=== PATIENT | male | born 1950 | race Caucasian/White ===

== ENCOUNTER 2016-08-08 15:29 | Emergency (ER) | payer MEDICARE, OTHER ==
[2016-08-08] MEDS ORDERED: HYDROmorphone 2 MG/ML SDV IVPUSH ONE (15:35)
[2016-08-08] MEDS ORDERED: Sodium Chloride 0.9% 1,000 ML IV ONE (15:36)
[2016-08-08] MEDS ORDERED: Ondansetron 4 MG/2 ML SDV IVPUSH ONE (15:36)
[2016-08-08] MEDS ORDERED: HYDROmorphone 2 MG/ML SDV ONE (15:36)
[2016-08-08] MEDS ORDERED: Ondansetron 4 MG/2 ML SDV ONE (15:36)
[2016-08-08 17:13] VITALS: BP 174/96
[2016-08-08] MEDS ORDERED: Sodium Chloride 0.9% 10 ML Syringe FLUSH PRN (17:14)
--- NOTE | 2016-08-09 12:32 | ER ---
DATE SEEN: 08/08/2016 TIME SEEN: The patient was seen at 1510 hours. HISTORY OF PRESENT ILLNESS: This 65-year-old comes in with chief complaint of abdominal discomfort, not sleeping for the last 3 days, and midepigastric abdominal discomfort. His stated that he fell on June 20, 2016, had hip and elbow discomfort, no fracture noted. Since then, he has been worse. He also has been having difficulty sleeping for several months. 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 No history of weight loss, blood in the stool, black tarry stool, diarrhea, constipation, vomiting, back pain, chest pain, shortness of breath, cough, paresis, weakness, or numbness in lower extremities. He has taken Tums on and off, and it has resulted in small stools. FAMILY HISTORY: Mother recently of old age. Father had congestive heart failure at age 80, with liver congestion, stents, and kidney disease. Brother is alive and healthy. One sister of uterine cancer. Another sister of uterine cancer and a bowel obstruction. REVIEW OF SYSTEMS: Negative except as noted above. The patient denies headache, paresis, or neck stiffness. No shortness of breath, cough, chest pain, irregular heartbeat, near syncope. Denies falls. Denies leg pain. Denies frequency, urgency, dysuria, or renal stones. MEDICATIONS: 1. Pain medicine given to the patient, IV 2 mg of Dilaudid and flushed with normal saline. 2. Zofran 4 mg IV before he went off to CAT scan. CAT scan came back as large pancreatic 10 cm mass in the abdomen. PHYSICAL EXAMINATION: VITAL SIGNS: Blood pressure 175/91, heart rate 62, respirations 18, oxygen saturation 98%, temperature 36.5 degrees. GENERAL: The patient has marked pain, mainly in his left flank. He does not want to move. He has all these signs of severe flank pain related to a kidney stone. He has an anterior abdominal mass that appears significant about a softball size, it is indurated, above the umbilicus. Bowel sounds present. No increased bowel sounds. HEENT: PERRLA intact. TMs negative. Pharynx without abnormality. Mouth, dry mucosa. NECK: No cervical adenopathy or thyromegaly. No sentinel nodes. CHEST: No chest wall discomfort. No rales in the lungs. No rhonchi or wheezes. HEART: S1, S2. No irregular rate and rhythm. ABDOMEN: Firm, mildly tender, large mass 10 to 14 cm, in the mid supraumbilical region, . Bowel sounds are present. No tympany. No sign of bowel obstruction. No distention. No CVA percussion tenderness. GENITALIA: Negative. EXTREMITIES: Lower extremities without edema. Deep tendon reflexes normoactive, hypoactive in upper and lower extremities. Cranial nerves II through XII intact. Oriented x3. Gait not tested because he is somnolent and lightheaded from the 2 mg of Dilaudid IV dose. ASSESSMENT: 1. Pancreatic cancer with extensive lymphadenopathy in the abdomen, findings on CAT scan today. 2. Pancreatic tumor Inappropriate antidiuretic hormone secretion with hyponatremia, hypochloremia with sodium 120, chloride 87. 3. Elevated glucose 130, reactive glucose elevation, lactic acid 1.6, calcium 8.4, AST elevated at 51, ALT 30, troponin less than 0.01. When evaluating the liver, I did place the Hounsfield on the kidneys to look for kidney stones. I pushed the Hounsfield units over to liver, there are areas of increased Hounsfield units, about 84, and one focal area of the liver in the inferior midportion, as opposed to other areas of 8, this suggests perhaps there is metastatic disease in the liver also. DIAGNOSES: 1. Pancreatic cancer. 2. Extensive abdominal lymphadenopathy. 3. Difficulty sleeping secondary to his pancreatic cancer and abdominal pain. 4. Inappropriate antidiuretic hormone secretion with hypochloremia and hyponatremia. 5. Reactive elevated glucose. 6. Urinalysis is negative. He has ketonuria secondary to hypoglycemia. EMERGENCY ROOM COURSE: The patient was flushed with a liter of normal saline and followed with a liter of 150 mL/hour of lactated Ringer's. The patient's status was discussed with Dr. Mcgovern, at [place]. At 1650 hours, the patient was transferred to [place] by car for further evaluation and treatment. /[id number] SUN/BEN OGD
--- NOTE | 2016-08-10 12:24 | CR ---
INDICATION: Right flank pain/diaphoresis. CHEST: AP and lateral views of the chest were obtained 08/08/2016. No comparisons were available. The heart appears to be near the upper limits of normal in size. The aorta is tortuous with minimal calcification in the arch of the aorta. Slight flattening of diaphragm leaves with prominent AP diameter and hyperaeration suggests COPD. An active infiltrate or effusion was not identified. Moderately severe degenerative changes are noted at the right AC joint. Degenerative changes are suggested at the shoulders additionally. IMPRESSION: 1. No definite acute process. 2. Probable COPD. 3. ASHD. 4. DISH with flowing hyperostotic changes in the mid to lower thoracic spine. MTDD
== END 2016-08-08 18:20 ==
LOC: FB.ED 15:29
DX: C25.0 Malignant neoplasm of head of pancreas (principal); R59.0 Localized enlarged lymph nodes; G47.01 Insomnia due to medical condition; E22.2 Syndrome of inappropriate secretion of antidiuretic hormone; E87.8 Other disorders of electrolyte and fluid balance, not elsewhere classified; I25.10 Atherosclerotic heart disease of native coronary artery without angina pectoris; Z82.49 Family history of ischemic heart disease and other diseases of the circulatory system; Z80.8 Family history of malignant neoplasm of other organs or systems
CPT/HCPCS: 36415; 71020; 74176; 80053; 81001; 82150; 83605; 84484; 85025; 96361; 96374; 96375; 99203; 99285; J1170; J2405; J7040; J7050

== ENCOUNTER 2016-08-17 05:16 | Emergency (ER) | payer MEDICARE, OTHER ==
[2016-08-17] MEDS ORDERED: Ondansetron 4 MG/2 ML SDV IVPUSH ONE (05:40)
[2016-08-17] MEDS ORDERED: HYDROmorphone 2 MG/ML SDV IVPUSH ONE ×2 (05:40→08:40)
[2016-08-17] MEDS ORDERED: Sodium Chloride 0.9% 1,000 ML IV SCH (05:45)
[2016-08-17] MEDS ORDERED: Pantoprazole 40 MG Vial IVPUSH ONE (08:10)
[2016-08-17 12:37] VITALS: BP 134/71
--- NOTE | 2016-08-20 13:38 | ER ---
DATE SEEN: 08/17/2016 TIME SEEN: The patient was seen at 0530 hours. CHIEF COMPLAINT: Abdominal pain. HISTORY OF PRESENT ILLNESS: The patient has been seen by oncologist for the masses discovered by myself last week after CAT scanning extensively and was thought to have pancreatic cancer, but it turns out it was primarily lymph node abnormality. Biopsy was performed in [place] and sees the oncologist tomorrow. He has increasing abdominal pain with burning in his stomach. He is taking hydrocodone with Tylenol, that does not decrease his pain. He has increased satiety. Mild diarrhea. No constipation or blood in the stool. No shortness of breath, chest pain, back pain, arm pain, jaw pain, neck pain, lightheadedness, or dizziness. His is able to drink fluids without vomiting. No reflux and no history of hepatitis or jaundice with the current lesion. FAMILY HISTORY: Mother of old age. Father has congestive heart failure, living at age 80 with stents and kidney disease. Brother is alive and healthy. One sister of uterine cancer. Another sister of uterine cancer and bowel obstruction. REVIEW OF SYSTEMS: Negative except for noted above. Previously documented extensive abdominal lymphadenopathy, abdominal mass, hyponatremia thought to be secondary to antidiuretic hormone from the cancer. The patient was then transferred to [place] to be seen and making arrangements for chemotherapy followup. PHYSICAL EXAMINATION: VITAL SIGNS: Blood pressure 171/96, heart rate 81 and regular, respirations 20, oxygen saturation 96% on room air, and temperature is 36.6 degrees centigrade. GENERAL: The patient looks worn, tired and uncomfortable. He is quite a stoic fellow, in spite of the fact he has moderate pain, discomfort of 6 to 7 in intensity. HEENT: PERRLA intact. Slightly slow reactive pupils. TMs negative. Pharynx, mild dry mucosa. LUNGS: Clear to auscultation without rales, rhonchi, or wheezes. HEART: S1, S2. No murmur. No tachycardia. ABDOMEN: Firm, moderate discomfort. Mass in mid periumbilical area is noted. No guarding. No rebound. No heel tap rebound. RECTAL: Not performed. GENITALIA: Not examined. LOWER EXTREMITIES: No edema. No laboratory tests were performed today, as I know him well. He is going to be seeing the oncologist tomorrow. The patient is here to have amelioration of pain and was flushed with 1000 mL of normal saline and 2 mg of Dilaudid with 4 mg oral Zofran utilized. This diminished his pain and he was very appreciative. PLAN: We discussed pain medicine he might use at home because of his pain. At this point, plan is to use morphine 20 mg/mL, so he would get 0.25 mL every 30 minutes as needed for pain. He is to take this orally. A 30 mL bottle was prescribed of morphine sulfate 20 mg/mL. Pharmacy instructed to teach him how to use this with a tuberculin syringe. Follow up with his oncologist tomorrow. If difficulties remain today, the patient is to call back. Also use Pepcid 20 mg daily and/or b.i.d., depending upon the extent of burning. DIAGNOSES: 1. Lymphadenopathy with recent biopsy of cancer in the abdomen. 2. No evidence for pancreatic cancer. 3. Weight loss. 4. Marked pain. /[id number] SUN/BEN
== END 2016-08-17 09:30 | disposition home or self-care (01) ==
LOC: FB.ED 05:16
DX: R59.1 Generalized enlarged lymph nodes (principal); R63.4 Abnormal weight loss
CPT/HCPCS: 36415; 80053; 82150; 83615; 85025; 86140; 96361; 96374; 96375; 96376; 99284; C9113; J1170; J2405; J7040

== ENCOUNTER 2016-10-25 23:45 | Inpatient (IN) | payer MEDICARE, OTHER ==
[2016-10-25] MEDS ORDERED: Sodium Chloride 0.9% 1,000 ML IV ONE (23:56)
[2016-10-26] MEDS ORDERED: Piperacillin/Tazobactam 3.375 GM in Sodium Chloride 0.9% 50 ML IV STA (01:29)
[2016-10-26] MEDS ORDERED: Ondansetron 4 MG/2 ML SDV IV PRN (01:45)
[2016-10-26] MEDS ORDERED: Docusate Sodium 100 MG Cap PO PRN (01:45)
--- NOTE | 2016-10-26 01:45 | EDM.PDOC ---
ED HPI GENERAL MEDICAL PROBLEM - General Chief Complaint: Fever Stated Complaint: FEVER,WEAKNESS Time Seen by Provider: 10/26/16 00:00 Source of Information: Reports: Patient, Family History Limitations: Reports: Physical Impairment - History of Present Illness INITIAL COMMENTS - FREE TEXT/NARRATIVE: 65 years old w m with non Hodgkins lymphoma B Cell, came to the ed due to weakness, frequent falls, BP was 85/56 puls 105. Pt looked pale and diaphoretic , unable to give a HPI, which was given by his SO. Onset: Sudden, Gradual Onset Date: 10/25/16 Onset Time: 09:00 Duration: Day(s): Location: Reports: Generalized Improves with: Reports: None Worsens with: Reports: None Associated Symptoms: Reports: Diaphoresis, Fever/Chills, Loss of Appetite, Weakness - Related Data Allergies Allergy/AdvReac Type Severity Reaction Status Date / Time No Known Allergies Allergy Verified 08/17/16 09:46 Home Meds: Home Meds Omeprazole 20 mg PO DAILY 08/08/16 [History] Famotidine [Pepcid] 20 mg PO BID #1 bottle 08/17/16 [Rx] Morphine [Morphine 20 MG/ML Soln] 5 mg PO Q30M PRN #1 bottle 08/17/16 [Rx] Multivit-Min/FA/Vit K/Lycopene [One-A-Day Men's 50 Plus Tablet] 1 tab PO DAILY 10/26/16 [History] Potassium Chloride 1 tab PO BID 10/26/16 [History] Past Medical History - Past Health History Medical/Surgical History: Denies Medical/Surgical History Oncologic (Cancer) History: Reports: Non-Hodgkin's Lymphoma, Other (See Below) Other Oncologic History: Stage 3 - Past Surgical History GI Surgical History: Reports: Other (See Below) Other GI Surgeries/Procedures: Stent in liver Social & Family History - Family History Family Medical History: Noncontributory - Tobacco Use Smoking Status *Q: Never Smoker Second Hand Smoke Exposure: No - Caffeine Use Caffeine Use: Reports: None - Recreational Drug Use Recreational Drug Use: No ED ROS GENERAL - Review of Systems Review Of Systems: Unable To Obtain ED EXAM, SEPSIS - Physical Exam Exam: See Below Exam Limited By: Physical Impairment General Appearance: Alert, Severe Distress, Thin Eye Exam: Bilateral Eye: Normal Inspection Ears: Normal External Exam Nose: Normal Inspection, Normal Mucosa Throat/Mouth: Other (dry mucosal membrane) Head: Atraumatic, Normocephalic Neck: Normal Inspection, Supple, Non-Tender, Full Range of Motion Respiratory/Chest: No Respiratory Distress, Lungs Clear Cardiovascular: Tachycardia Peripheral Pulses: 1+: Femoral (L), Femoral (R) GI/Abdominal: Normal Bowel Sounds, Soft, Non-Tender, No Distention (Male) Exam: Deferred Rectal (Males) Exam: Deferred Back: Normal Inspection, Full Range of Motion Extremities: Normal Inspection, Normal Range of Motion, Non-Tender, No Pedal Edema Neurological: Inattentive Psychiatric: Depressed Mood Skin: Diaphoretic Comments: enlarged spleen EKG INTERPRETATION EKG Date: 10/26/16 Time: 02:50 Rhythm: NSR Rate (beats/min): 91 Starlight: normal P-wave: present QRS: normal ST-T: normal QT: normal Comparison: NA - no prior EKG EKG Interpretation Comments: taken after hydration Course - Vital Signs Text/Narrative:: 65 years old w m with non Hodgkins lymphoma B Cell, came to the ed due to weakness, frequent falls, BP was 85/56 puls 105. Pt looked pale and diaphoretic , unable to give a HPI, which was given by his SO. PE: pale, diaphoretic, low BP, tachycardia Labs: Lactic acid 2.9 Ca 7.6 Na 133 HGB 9.7 BCx results pending Imaging: Pending Impression: Nonhodgkin Lymphoma, Septic shock Tx: Zosyn,Vancomycin, NS Reexam: Improved BP 15/67 puls 91, Plan: Admit to ICU 10/27/2016 progress note: I was called this am by the nurse, Pt's RR is increasing to 32 BPM. D Dimer was pos >2000, CTA was pos for PE involving distal left main pulmonary artery and adjacent branch vessels. Nl Kidney function. Oncilogist Douglas Rich was consulted: Lovenox 1mg/kg SQ BID is OK F.L. Last Recorded V/S: Last Vital Signs Temp 37.1 C 10/26/16 20:00 Pulse 103 H 10/26/16 15:55 Resp 28 H 10/26/16 20:00 BP 114/77 10/26/16 20:00 Pulse Ox 91 L 10/26/16 20:00 - Orders/Labs/Meds Orders: Medication Orders Docusate Sodium (Colace) 100 mg PO BID PRN PRN Reason: Constipation Famotidine (Pepcid) 20 mg PO BID [facility] Last Admin: 10/26/16 20:59 Dose: 20 mg Admin: 10/26/16 09:53 Dose: 20 mg Heparin Sodium (Porcine) (Heparin Lock Flush 10 Units/Ml) 50 unit FLUSH ASDIRECTED PRN PRN Reason: Keep Vein Open Last Admin: 10/27/16 02:40 Dose: 50 unit Admin: 10/26/16 21:45 Dose: 50 unit Admin: 10/26/16 06:12 Dose: 50 unit Sodium Chloride (Normal Saline) 250 mls @ 150 mls/hr IV ASDIRECTED [facility] Sodium Chloride (Normal Saline) 1,000 mls @ 150 mls/hr IV ASDIRECTED [facility] Last Admin: 10/26/16 23:25 Dose: 150 mls/hr Infusion: 10/26/16 21:43 Dose: 150 mls/hr Admin: 10/26/16 15:02 Dose: 150 mls/hr Infusion: 10/26/16 15:02 Dose: 150 mls/hr Admin: 10/26/16 08:35 Dose: 150 mls/hr Levofloxacin/Dextrose 750 mg/ (Premix) 150 mls @ 100 mls/hr IV Q24H [facility] Last Admin: 10/26/16 17:47 Dose: 100 mls/hr Loperamide HCl (Imodium) 2 mg PO Q4H PRN PRN Reason: Diarrhea Last Admin: 10/26/16 23:50 Dose: 2 mg Morphine Sulfate (Morphine 20 Mg/Ml Soln) 5 mg PO Q30M PRN PRN Reason: Pain Multivitamins/Minerals (Vitamins And Minerals) 1 tab PO DAILY [facility] Last Admin: 10/26/16 09:57 Dose: 1 tab Omeprazole (Omeprazole) 20 mg PO 0600 [facility] Last Admin: 10/26/16 09:52 Dose: 20 mg Ondansetron HCl (Zofran) 4 mg IV Q4H PRN PRN Reason: Nausea/Vomiting Potassium Chloride (Klor-Con M20) 20 meq PO BID [facility] Last Admin: 10/26/16 20:59 Dose: 20 meq Admin: 10/26/16 09:52 Dose: 20 meq Sodium Chloride (Harrison Nasal Porter) 0 ml KINJAL Q2H PRN PRN Reason: Nasal Dryness Last Admin: 10/26/16 20:56 Dose: 1 spray Labs: Laboratory Tests 10/25/16 10/25/16 10/25/16 Range/Units 23:58 23:58 23:58 WBC 7.7 (4.5-12.0) X10-3/uL RBC 3.52 L (4.30-5.75) x10(6)uL Hgb 9.7 L D (11.5-15.5) g/dL Hct 29.2 L (30.0-51.3) % MCV 82.8 (80-96) fL MCH 27.6 L (27.7-33.6) pg MCHC 33.4 (32.2-35.4) g/dL RDW 15.7 H (11.5-15.5) % Plt Count 333 (125-369) X10(3)uL MPV 7.8 (7.4-10.4) fL Add Manual Diff Yes Neutrophils % (Manual) 74 (46-82) % Band Neutrophils % 8 H (0-6) % Lymphocytes % (Manual) 13 (13-37) % Monocytes % (Manual) 5 (4-12) % Sodium 130 L (135-145) mmol/L Potassium 4.1 (3.5-5.3) mmol/L Chloride 99 L D (100-110) mmol/L Carbon Dioxide 21 L (23-29) mmol/L BUN 15 (8-23) mg/dL Creatinine 1.0 (0.6-1.3) mg/dL Est Cr Clr Drug Dosing 68.85 mL/min Estimated GFR (MDRD) > 60 (>60) BUN/Creatinine Ratio 15.0 (9-20) Glucose 160 H (80-116) mg/dL Lactic Acid (0.5-2.2) mmol/L Calcium 7.6 L (8.6-10.2) mg/dL B-Natriuretic Peptide 26 (0-100) pg/mL Urine Color (YELLOW) Urine Appearance (CLEAR) Urine pH (5.0-6.5) Ur Specific [place] (1.010-1.025) Urine Protein (NEGATIVE) mg/dL Urine Glucose (UA) (NEGATIVE) mg/dL Urine Ketones (NEGATIVE) mg/dL Urine Occult Blood (NEGATIVE) Urine Nitrite (NEGATIVE) Urine Bilirubin (NEGATIVE) Urine Urobilinogen (NEGATIVE) mg/dL Ur Leukocyte Esterase (NEGATIVE) Urine RBC (0) Urine WBC (0) Ur Squamous Epith Cells (NS,R,O) Urine Bacteria (NS) 10/25/16 10/26/16 Range/Units 23:58 01:30 WBC (4.5-12.0) X10-3/uL RBC (4.30-5.75) x10(6)uL Hgb (11.5-15.5) g/dL Hct (30.0-51.3) % MCV (80-96) fL MCH (27.7-33.6) pg MCHC (32.2-35.4) g/dL RDW (11.5-15.5) % Plt Count (125-369) X10(3)uL MPV (7.4-10.4) fL Add Manual Diff Neutrophils % (Manual) (46-82) % Band Neutrophils % (0-6) % Lymphocytes % (Manual) (13-37) % Monocytes % (Manual) (4-12) % Sodium (135-145) mmol/L Potassium (3.5-5.3) mmol/L Chloride (100-110) mmol/L Carbon Dioxide (23-29) mmol/L BUN (8-23) mg/dL Creatinine (0.6-1.3) mg/dL Est Cr Clr Drug Dosing mL/min Estimated GFR (MDRD) (>60) BUN/Creatinine Ratio (9-20) Glucose (80-116) mg/dL Lactic Acid 2.9 H (0.5-2.2) mmol/L Calcium (8.6-10.2) mg/dL B-Natriuretic Peptide (0-100) pg/mL Urine Color Yellow (YELLOW) Urine Appearance Clear (CLEAR) Urine pH 8.0 H (5.0-6.5) Ur Specific [place] 1.010 (1.010-1.025) Urine Protein Negative (NEGATIVE) mg/dL Urine Glucose (UA) Normal (NEGATIVE) mg/dL Urine Ketones Negative (NEGATIVE) mg/dL Urine Occult Blood Negative (NEGATIVE) Urine Nitrite Negative (NEGATIVE) Urine Bilirubin Negative (NEGATIVE) Urine Urobilinogen Normal (NEGATIVE) mg/dL Ur Leukocyte Esterase Negative (NEGATIVE) Urine RBC 0-5 (0) Urine WBC 0-5 (0) Ur Squamous Epith Cells Rare (NS,R,O) Urine Bacteria Rare H (NS) Meds: Medications Generic Name Dose Route Start Last Admin Trade Name Mahnaz PRN Reason Stop Dose Admin Docusate Sodium 100 mg 10/26/16 01:45 Colace PO BID PRN Constipation Famotidine 20 mg 10/26/16 09:00 10/26/16 20:59 Pepcid PO 20 mg BID TAWANDA Administration Heparin Sodium (Porcine) 50 unit 10/26/16 04:34 10/27/16 02:40 Heparin Lock Flush 10 Units/Ml FLUSH 50 unit ASDIRECTED PRN Administration Keep Vein Open Sodium Chloride 250 mls @ 150 mls/hr 10/26/16 04:45 Normal Saline IV ASDIRECTED TAWANDA Sodium Chloride 1,000 mls @ 150 mls/hr 10/26/16 08:30 10/26/16 23:25 Normal Saline IV 150 mls/hr ASDIRECTED TAWANDA Administration Levofloxacin/Dextrose 750 mg/ 150 mls @ 100 mls/hr 10/26/16 17:30 10/26/16 17 :47 Premix IV 100 mls/hr Q24H TAWANDA Administration Loperamide HCl 2 mg 10/26/16 23:36 10/26/16 23:50 Imodium PO 2 mg Q4H PRN Administration Diarrhea Morphine Sulfate 5 mg 10/26/16 08:11 Morphine 20 Mg/Ml Soln PO Q30M PRN Pain Multivitamins/Minerals 1 tab 10/26/16 09:00 10/26/16 09:57 Vitamins And Minerals PO 1 tab DAILY TAWANDA Administration Omeprazole 20 mg 10/26/16 08:30 10/26/16 09:52 Omeprazole PO 20 mg 0600 TAWANDA Administration Ondansetron HCl 4 mg 10/26/16 01:45 Zofran IV Q4H PRN Nausea/Vomiting Potassium Chloride 20 meq 10/26/16 09:00 10/26/16 20:59 Klor-Con M20 PO 20 meq BID TAWANDA Administration Sodium Chloride 0 ml 10/26/16 20:10 10/26/16 20:56 Harrison Nasal Porter KINJAL 1 spray Q2H PRN Administration Nasal Dryness Discontinued Medications Generic Name Dose Route Start Last Admin Trade Name Mahnaz PRN Reason Stop Dose Admin Sodium Chloride 1,000 mls @ 999 mls/hr 10/25/16 23:56 10/26/16 00:10 Normal Saline IV 10/26/16 00:56 999 mls/hr .BOLUS ONE Administration Piperacillin Sod/Tazobactam 50 mls @ 100 mls/hr 10/26/16 01:29 10/26/16 02:03 Sod 3.375 gm/ Sodium Chloride IV 10/26/16 01:58 100 mls/hr Q6H STA Administration Vancomycin HCl 1,000 mg/ 250 mls @ 167 mls/hr 10/26/16 01:30 10/26/16 04:10 Dextrose/Water IV 10/26/16 02:59 167 mls/hr ONETIME ONE Administration Sodium Chloride 1,000 mls @ 999 mls/hr 10/26/16 02:00 10/26/16 01:30 Normal Saline IV 10/26/16 03:00 999 mls/hr .BOLUS ONE Administration Vancomycin HCl 1 gm/ Sodium 250 mls @ 167 mls/hr 10/26/16 21:00 Chloride IV Q24H TAWANDA Vancomycin HCl 1 gm/ Sodium 250 mls @ 167 mls/hr 10/27/16 05:00 Chloride IV Q24H TAWANDA Piperacillin Sod/Tazobactam 50 mls @ 100 mls/hr 10/26/16 14:00 10/26/16 15:05 Sod 3.375 gm/ Sodium Chloride IV 100 mls/hr Q6H TAWANDA Administration Iopamidol 75 ml 10/27/16 03:33 10/27/16 03:58 Isovue-370 (76%) IV 10/27/16 03:34 63 ml ONETIME ONE Administration Sodium Chloride 10 ml 10/26/16 04:37 10/26/16 06:12 Saline Flush FLUSH 10/26/16 04:38 10 ml ONETIME ONE Administration Departure - Departure Time of Disposition: 01:41 Disposition: Admitted As Inpatient 66 Condition: poor Clinical Impression: Septic shock Non-Hodgkin lymphoma Qualifiers: Non-Hodgkin lymphoma type: B-cell - Discharge Information
[2016-10-26] MEDS ORDERED: Sodium Chloride 0.9% 1,000 ML IV ONE (02:00)
[2016-10-26] MEDS ORDERED: Sodium Chloride 0.9% 10 ML Syringe FLUSH ONE (04:37)
[2016-10-26] MEDS ORDERED: Sodium Chloride 0.9% 250 ML IV SCH (04:45)
[2016-10-26] MEDS: Heparin Sodium 10 Units/ML 5 ML Syringe FLUSH PRN ×2 (06:12→21:45)
[2016-10-26] MEDS ORDERED: Morphine Oral Concentrate 20 MG/ML 30 ML Bottle PO PRN (08:11)
--- NOTE | 2016-10-26 08:18 | PCM.HP ---
H&P History of Present Illness - General Date of Service: 10/26/16 Admit Problem/Dx: Admission Diagnosis/Problem Admission Diagnosis/Problem Septic shock Source of Information: Patient History Limitations: Reports: No Limitations - History of Present Illness Initial Comments - Free Text/Narative: This is a 65-year-old male patient has non-Hodgkin's lymphoma. Came into the ER last night after he had a syncopal episode. He states he had hot sweaty when he went to the bathroom and then passed out. His brought him in and he was admitted. The last time you came home was 1 month ago. He was seen by his oncologist in [place] and did not get chemotherapy because he was not doing well. Did a CT scan that did not show infection. I reviewed Dr. Segura notes and she states he looked dehydrated 3 days ago when she saw him. No treatment was given at that time. He denies fevers, chills, ear pain, sore throat, cough , shortness of breath, abdominal pain, nausea, vomiting, diarrhea, dysuria, pyuria and hematuria. He denies any rashes. - Related Data Allergies/Adverse Reactions: Allergies Allergy/AdvReac Type Severity Reaction Status Date / Time No Known Allergies Allergy Verified 08/17/16 09:46 Home Medications: Home Meds Omeprazole 20 mg PO DAILY 08/08/16 [History] Famotidine [Pepcid] 20 mg PO BID #1 bottle 08/17/16 [Rx] Morphine [Morphine 20 MG/ML Soln] 5 mg PO Q30M PRN #1 bottle 08/17/16 [Rx] Multivit-Min/FA/Vit K/Lycopene [One-A-Day Men's 50 Plus Tablet] 1 tab PO DAILY 10/26/16 [History] Potassium Chloride 1 tab PO BID 10/26/16 [History] Past Medical History - Past Health History Medical/Surgical History: Denies Medical/Surgical History Gastrointestinal History: Reports: Other (See Below) Other Gastrointestinal History: liver bx Oncologic (Cancer) History: Reports: Non-Hodgkin's Lymphoma, Other (See Below) Other Oncologic History: Stage 3 - Infectious Disease History Infectious Disease History: Reports: Measles, Mumps - Past Surgical History Head Surgeries/Procedures: Reports: Other (See Below) GI Surgical History: Reports: Other (See Below) Other GI Surgeries/Procedures: Stent in liver Social & Family History - Family History Family Medical History: Noncontributory - Tobacco Use Smoking Status *Q: Never Smoker Second Hand Smoke Exposure: No - Caffeine Use Caffeine Use: Reports: None - Recreational Drug Use Recreational Drug Use: No H&P Review of Systems - Review of Systems: Review Of Systems: See Below General: Reports: Malaise, Weakness, Fatigue, Weight Loss. Denies: Fever, Chills, Night Sweats, Diaphoresis, Decreased Appetite HEENT: Reports: No Symptoms Pulmonary: Reports: No Symptoms Cardiovascular: Reports: No Symptoms Gastrointestinal: Reports: No Symptoms Genitourinary: Reports: No Symptoms Musculoskeletal: Reports: No Symptoms Skin: Reports: No Symptoms Psychiatric: Reports: No Symptoms Neurological: Reports: No Symptoms Hematologic/Lymphatic: Reports: No Symptoms Immunologic: Reports: No Symptoms Exam - Exam Exam: See Below - Vital Signs Vital Signs: Last Vital Signs Temp 97.7 F 10/26/16 06:00 Pulse 82 10/26/16 06:00 Resp 23 H 10/26/16 06:00 BP 108/69 10/26/16 06:00 Pulse Ox 95 10/26/16 06:00 Weight: 163 lb 14.4 oz - Exam General: Alert, Oriented, Cooperative HEENT: PERRLA, Hearing Intact, Mucosa Moist & [place], Posterior Pharynx Clear, TMs Clear. No: Rhinitis Neck: Supple, Trachea Midline. No: JVD Lungs: Clear to Auscultation, Normal Respiratory Effort. No: Decreased Breath Sounds, Crackles, Rales, Rhonchi, Wheezing Cardiovascular: Regular Rate, Regular Rhythm, Normal S1, Normal S2. No: Bradycardia, Tachycardia Abdomen: Normal Bowel Sounds, Soft, Distention, Mass (Upper abdomen). No: Organomegaly, Peritoneal Signs, Guarding, Rigidity, Rebound, Tenderness Back Exam: Normal Inspection, Full Range of Motion. No: Vertebral Tenderness Extremities: Normal Inspection. No: Edema Skin: Warm, Intact Neuro Extensive - Mental Status: Alert, Oriented x3, Normal Mood/Affect, Normal Cognition Psychiatric: Alert, Normal Affect, Normal Mood - Patient Data Result Diagrams: 10/25/16 23:58 10/25/16 23:58 *Q Meaningful Use (ADM) - VTE *Q VTE Criteria *Q: - Stroke *Q Stroke Criteria *Q: - AMI *Q AMI Criteria *Q: - Problem List (1) Syncopal episodes SNOMED Code(s): 464483359 ICD Code: R55 - SYNCOPE AND COLLAPSE Status: Acute Current Visit: Yes (2) Hyponatremia SNOMED Code(s): 67710919 ICD Code: E87.1 - HYPO-OSMOLALITY AND HYPONATREMIA Status: Acute Current Visit: Yes (3) Anemia SNOMED Code(s): 118858969 ICD Code: D64.9 - ANEMIA, UNSPECIFIED Status: Acute Current Visit: Yes (4) Non-Hodgkin lymphoma SNOMED Code(s): 836359432 ICD Code: C85.90 - NON-HODGKIN LYMPHOMA, UNSPECIFIED, UNSPECIFIED SITE Status: Acute Current Visit: Yes Qualifiers: Non-Hodgkin lymphoma type: B-cell Problem List Initiated/Reviewed/Updated: Yes Orders Last 24hrs: Active Orders 24 hr Category Date Time Status Regular Diet [DIET] Diet 10/26/16 Lunch Ordered CXR [Chest 2V] [CR] Routine Exams 10/26/16 08:10 Ordered CBC WITH AUTO DIFF [HEME] Routine Lab 10/26/16 08:11 Ordered COMPREHENSIVE METABOLIC PN,CMP [CHEM] Routine Lab 10/26/16 08:11 Ordered Famotidine [Pepcid] Med 10/26/16 09:00 Ordered 20 mg PO BID Heparin Sodium [Heparin Lock Flush 10 Units/ML] Med 10/26/16 04:34 Active 50 unit FLUSH ASDIRECTED PRN Morphine [Morphine 20 MG/ML Soln] Med 10/26/16 08:11 Ordered 5 mg PO Q30M PRN Multivit-Min/FA/Vit K/Lycopene [One-A-Day Men's 50 Plus Med 10/26/16 09:00 Ordered Tablet] 1 tab PO DAILY Omeprazole [Omeprazole] Med 10/26/16 09:00 Ordered 20 mg PO DAILY Potassium Chloride [Potassium Chloride] Med 10/26/16 09:00 Ordered 1 tab PO BID Sodium Chloride 0.9% [Normal Saline] 250 ml Med 10/26/16 04:45 Active IV ASDIRECTED EKG 12 Lead [EK] Routine Ther 10/26/16 01:54 Ordered Medication Orders Docusate Sodium (Colace) 100 mg PO BID PRN PRN Reason: Constipation Famotidine (Pepcid) 20 mg PO BID [facility] Heparin Sodium (Porcine) (Heparin Lock Flush 10 Units/Ml) 50 unit FLUSH ASDIRECTED PRN PRN Reason: Keep Vein Open Last Admin: 10/26/16 06:12 Dose: 50 unit Sodium Chloride (Normal Saline) 250 mls @ 150 mls/hr IV ASDIRECTED [facility] Morphine Sulfate (Morphine 20 Mg/Ml Soln) 5 mg PO Q30M PRN PRN Reason: Pain Non-Formulary Medication (Multivit-Min/Fa/Vit K/Lycopene [One-A-Day Men's 50 Plus Tablet]) 1 tab PO DAILY [facility] Non-Formulary Medication (Omeprazole [Omeprazole]) 20 mg PO DAILY [facility] Non-Formulary Medication (Potassium Chloride [Potassium Chloride]) 1 tab PO BID [facility] Ondansetron HCl (Zofran) 4 mg IV Q4H PRN PRN Reason: Nausea/Vomiting Assessment/Plan Comment:: 1. Patient was admitted to rule out sepsis. Admitting doctor started on Zosyn and Vanco. 2. IV fluids 3. I reviewed his hemoglobin and sodium in [facility] and they're about the same as they were. 4. Reviewed his CT scan and it off here. 5. Regular diet 6. Up with assist 7. Recheck labs including a CMP and CBC. 8. The cultures already ordered. 9. Chest x-ray to rule out pneumonia.
[2016-10-26] MEDS: Sodium Chloride 0.9% 1,000 ML IV SCH ×3 (08:35→23:25)
[2016-10-26] MEDS: Omeprazole 20 MG Cap.CR PO SCH (09:52)
[2016-10-26] MEDS: Potassium Chloride 20 MEQ Tab.ER PO SCH ×2 (09:52→20:59)
[2016-10-26] MEDS: Famotidine 20 MG Tab PO SCH ×2 (09:53→20:59)
[2016-10-26] MEDS: Multivitamins, Therapeutic with Minerals Tab PO SCH (09:57)
[2016-10-26] MEDS ORDERED: Piperacillin/Tazobactam 3.375 GM in Sodium Chloride 0.9% 50 ML IV SCH (14:00)
[2016-10-26] MEDS: Levofloxacin/Dextrose 5%-Water 750 MG in Premix Bag 1 BAG IV SCH (17:47)
[2016-10-26] MEDS ORDERED: Sodium Chloride 0.65% Nasal Spray 45 ML Bottle NAS PRN (20:10)
[2016-10-26] MEDS: Loperamide 2 MG Cap PO PRN (23:50)
[2016-10-27] MEDS: Heparin Sodium 10 Units/ML 5 ML Syringe FLUSH PRN ×3 (02:40→18:00)
[2016-10-27] MEDS ORDERED: Iopamidol 755 Mg/ML 75 ML Bottle IV ONE (03:33)
[2016-10-27] MEDS: Enoxaparin 80 MG/0.8 ML Syringe SUBCUT SCH ×2 (05:01→17:09)
[2016-10-27] MEDS: Omeprazole 20 MG Cap.CR PO SCH (05:02)
[2016-10-27] MEDS: Loperamide 2 MG Cap PO PRN ×2 (05:48→10:04)
[2016-10-27] MEDS: Sodium Chloride 0.9% 1,000 ML IV SCH ×2 (06:00→12:46)
[2016-10-27] MEDS: Potassium Chloride 20 MEQ Tab.ER PO SCH ×2 (10:03→20:45)
[2016-10-27] MEDS: Multivitamins, Therapeutic with Minerals Tab PO SCH (10:04)
[2016-10-27] MEDS: Famotidine 20 MG Tab PO SCH ×2 (10:04→20:43)
[2016-10-27] MEDS: Levofloxacin/Dextrose 5%-Water 750 MG in Premix Bag 1 BAG IV SCH (17:16)
--- NOTE | 2016-10-27 19:00 | PCM.PN ---
- General Info Date of Service: 10/27/16 Admission Dx/Problem (Free Text): Patient states that he is feeling a little better today. Last week. He denies shortness of breath, wheezing or cough. CT was done last night showed pulmonary embolus and a little pneumonia - Patient Data Vitals - most recent: Last Vital Signs Temp 99.7 F 10/27/16 16:00 Pulse 104 H 10/27/16 16:00 Resp 30 H 10/27/16 16:00 BP 136/82 10/27/16 16:00 Pulse Ox 95 10/27/16 16:42 Orthostatic Blood Pressure [ 86/59 Standing] Orthostatic Blood Pressure [ 95/64 Sitting] Orthostatic Blood Pressure [ 110/67 Supine] Weight - most recent: 168 lb 14.4 oz I&O - last 24 hours: Intake & Output 10/27/16 10/27/16 10/27/16 06:59 14:59 22:59 Intake Total 1196 1233 Balance 1196 1233 Lab Results last 24 hrs: Laboratory Results - last 24 hr 10/27/16 10/27/16 10/27/16 Range/Units 02:35 02:35 02:35 WBC 6.0 (4.5-12.0) X10-3/uL RBC 3.29 L (4.30-5.75) x10(6)uL Hgb 8.9 L (11.5-15.5) g/dL Hct 27.2 L (30.0-51.3) % MCV 82.5 (80-96) fL MCH 27.0 L (27.7-33.6) pg MCHC 32.8 (32.2-35.4) g/dL RDW 16.4 H (11.5-15.5) % Plt Count 279 (125-369) X10(3)uL MPV 7.5 (7.4-10.4) fL Add Manual Diff Yes Neutrophils % (Manual) 78 (46-82) % Band Neutrophils % 8 H (0-6) % Lymphocytes % (Manual) 9 L (13-37) % Monocytes % (Manual) 5 (4-12) % Anisocytosis Few D-Dimer, Quantitative 2360 H (100-400) ng/mL Sodium 131 L (135-145) mmol/L Potassium 3.7 (3.5-5.3) mmol/L Chloride 105 (100-110) mmol/L Carbon Dioxide 21 L (23-29) mmol/L BUN 12 (8-23) mg/dL Creatinine 0.6 (0.6-1.3) mg/dL Est Cr Clr Drug Dosing 114.76 mL/min Estimated GFR (MDRD) > 60 (>60) BUN/Creatinine Ratio 20.0 (9-20) Glucose 124 H (80-116) mg/dL Calcium 7.3 L (8.6-10.2) mg/dL Med Orders - Current: Current Medications Docusate Sodium (Colace) 100 mg PO BID PRN PRN Reason: Constipation Enoxaparin Sodium (Lovenox) 70 mg SUBCUT Q12H [facility] Last Admin: 10/27/16 17:09 Dose: 70 mg Famotidine (Pepcid) 20 mg PO BID [facility] Last Admin: 10/27/16 10:04 Dose: 20 mg Heparin Sodium (Porcine) (Heparin Lock Flush 10 Units/Ml) 50 unit FLUSH ASDIRECTED PRN PRN Reason: Keep Vein Open Last Admin: 10/27/16 05:02 Dose: 50 unit Sodium Chloride (Normal Saline) 250 mls @ 150 mls/hr IV ASDIRECTED [facility] Sodium Chloride (Normal Saline) 1,000 mls @ 150 mls/hr IV ASDIRECTED [facility] Last Admin: 10/27/16 12:46 Dose: 150 mls/hr Levofloxacin/Dextrose 750 mg/ (Premix) 150 mls @ 100 mls/hr IV Q24H [facility] Last Admin: 10/27/16 17:16 Dose: 100 mls/hr Loperamide HCl (Imodium) 2 mg PO Q4H PRN PRN Reason: Diarrhea Last Admin: 10/27/16 10:04 Dose: 2 mg Morphine Sulfate (Morphine 20 Mg/Ml Soln) 5 mg PO Q30M PRN PRN Reason: Pain Multivitamins/Minerals (Vitamins And Minerals) 1 tab PO DAILY [facility] Last Admin: 10/27/16 10:04 Dose: 1 tab Omeprazole (Omeprazole) 20 mg PO 0600 [facility] Last Admin: 10/27/16 05:02 Dose: 20 mg Ondansetron HCl (Zofran) 4 mg IV Q4H PRN PRN Reason: Nausea/Vomiting Potassium Chloride (Klor-Con M20) 20 meq PO BID [facility] Last Admin: 10/27/16 10:03 Dose: 20 meq Sodium Chloride ([place] Nasal [place]) 0 ml KINJAL Q2H PRN PRN Reason: Nasal Dryness Last Admin: 10/26/16 20:56 Dose: 1 spray Discontinued Medications Sodium Chloride (Normal Saline) 1,000 mls @ 999 mls/hr IV .BOLUS ONE Stop: 10/26/16 00:56 Last Admin: 10/26/16 00:10 Dose: 999 mls/hr Piperacillin Sod/Tazobactam (Sod 3.375 gm/ Sodium Chloride) 50 mls @ 100 mls/ hr IV Q6H [facility] Stop: 10/26/16 01:58 Last Admin: 10/26/16 02:03 Dose: 100 mls/hr Vancomycin HCl 1,000 mg/ (Dextrose/Water) 250 mls @ 167 mls/hr IV ONETIME ONE Stop: 10/26/16 02:59 Last Admin: 10/26/16 04:10 Dose: 167 mls/hr Sodium Chloride (Normal Saline) 1,000 mls @ 999 mls/hr IV .BOLUS ONE Stop: 10/26/16 03:00 Last Admin: 10/26/16 01:30 Dose: 999 mls/hr Vancomycin HCl 1 gm/ Sodium (Chloride) 250 mls @ 167 mls/hr IV Q24H [facility] Vancomycin HCl 1 gm/ Sodium (Chloride) 250 mls @ 167 mls/hr IV Q24H [facility] Piperacillin Sod/Tazobactam (Sod 3.375 gm/ Sodium Chloride) 50 mls @ 100 mls/ hr IV Q6H [facility] Last Admin: 10/26/16 15:05 Dose: 100 mls/hr Iopamidol (Isovue-370 (76%)) 75 ml IV ONETIME ONE Stop: 10/27/16 03:34 Last Admin: 10/27/16 03:58 Dose: 63 ml Sodium Chloride (Saline Flush) 10 ml FLUSH ONETIME ONE Stop: 10/26/16 04:38 Last Admin: 10/26/16 06:12 Dose: 10 ml - Exam General: alert, oriented, cooperative Lungs: Clear to auscultation, Normal respiratory effort Cardiovascular: Regular Rate, Regular Rhythm, No Murmurs, Tachycardia Extremities: no edema - Problem List & Annotations (1) Syncopal episodes SNOMED Code(s): 653337137 Code(s): R55 - SYNCOPE AND COLLAPSE Status: Acute Current Visit: Yes (2) Hyponatremia SNOMED Code(s): 49565539 Code(s): E87.1 - HYPO-OSMOLALITY AND HYPONATREMIA Status: Acute Current Visit: Yes (3) Anemia SNOMED Code(s): 880470551 Code(s): D64.9 - ANEMIA, UNSPECIFIED Status: Acute Current Visit: Yes (4) Non-Hodgkin lymphoma SNOMED Code(s): 407406991 Code(s): C85.90 - NON-HODGKIN LYMPHOMA, UNSPECIFIED, UNSPECIFIED SITE Status: Acute Current Visit: Yes Qualifiers: Non-Hodgkin lymphoma type: B-cell - Problem List Review Problem List Initiated/Reviewed/Updated: Yes - My Orders Last 24 Hours: My Active Orders 10/26/16 20:10 Sodium Chloride 0.65% [[place] Nasal [place]] 0 ml KINJAL Q2H PRN 10/26/16 23:36 Loperamide [Imodium] 2 mg PO Q4H PRN - Plan Plan:: 1. Discussed care with Dr. Segura the oncologist. She stated Lovenox twice a day subcutaneous is to treatment. 2. Continue Levaquin 750 mg IV. 3. Continue ICU/telemetry.
[2016-10-27] MEDS ORDERED: Sodium Chloride 0.9% 1,000 ML IV SCH (20:40)
[2016-10-28] MEDS: Omeprazole 20 MG Cap.CR PO SCH (05:48)
[2016-10-28] MEDS: Enoxaparin 80 MG/0.8 ML Syringe SUBCUT SCH ×2 (05:49→17:34)
[2016-10-28] MEDS: Heparin Sodium 10 Units/ML 5 ML Syringe FLUSH PRN ×3 (05:55→19:20)
--- NOTE | 2016-10-28 08:35 | PCM.PN ---
- General Info Date of Service: 10/28/16 Admission Dx/Problem (Free Text): Patient states he still feels a little short of breath. No chest pain, fevers. Had some chills. No leg swelling. - Patient Data Vitals - most recent: Last Vital Signs Temp 98.0 F 10/28/16 03:50 Pulse 104 H 10/27/16 16:00 Resp 18 10/28/16 03:50 BP 113/63 10/28/16 03:50 Pulse Ox 94 L 10/28/16 03:50 Orthostatic Blood Pressure [ 86/59 Standing] Orthostatic Blood Pressure [ 95/64 Sitting] Orthostatic Blood Pressure [ 110/67 Supine] Weight - most recent: 172 lb I&O - last 24 hours: Intake & Output 10/27/16 10/28/16 10/28/16 22:59 06:59 14:59 Intake Total 1138 591 Balance 1138 591 Med Orders - Current: Current Medications Docusate Sodium (Colace) 100 mg PO BID PRN PRN Reason: Constipation Enoxaparin Sodium (Lovenox) 70 mg SUBCUT Q12H [facility] Last Admin: 10/28/16 05:49 Dose: 70 mg Famotidine (Pepcid) 20 mg PO BID [facility] Last Admin: 10/27/16 20:43 Dose: 20 mg Heparin Sodium (Porcine) (Heparin Lock Flush 10 Units/Ml) 50 unit FLUSH ASDIRECTED PRN PRN Reason: Keep Vein Open Last Admin: 10/28/16 05:55 Dose: 50 unit Sodium Chloride (Normal Saline) 250 mls @ 150 mls/hr IV ASDIRECTED [facility] Levofloxacin/Dextrose 750 mg/ (Premix) 150 mls @ 100 mls/hr IV Q24H [facility] Last Admin: 10/27/16 17:16 Dose: 100 mls/hr Sodium Chloride (Normal Saline) 1,000 mls @ 75 mls/hr IV ASDIRECTED [facility] Last Admin: 10/27/16 20:50 Dose: 75 mls/hr Loperamide HCl (Imodium) 2 mg PO Q4H PRN PRN Reason: Diarrhea Last Admin: 10/27/16 10:04 Dose: 2 mg Morphine Sulfate (Morphine 20 Mg/Ml Soln) 5 mg PO Q30M PRN PRN Reason: Pain Multivitamins/Minerals (Vitamins And Minerals) 1 tab PO DAILY [facility] Last Admin: 10/27/16 10:04 Dose: 1 tab Omeprazole (Omeprazole) 20 mg PO 0600 [facility] Last Admin: 10/28/16 05:48 Dose: 20 mg Ondansetron HCl (Zofran) 4 mg IV Q4H PRN PRN Reason: Nausea/Vomiting Potassium Chloride (Klor-Con M20) 20 meq PO BID [facility] Last Admin: 10/27/16 20:45 Dose: 20 meq Sodium Chloride ([place] Nasal [place]) 0 ml KINJAL Q2H PRN PRN Reason: Nasal Dryness Last Admin: 10/26/16 20:56 Dose: 1 spray Discontinued Medications Sodium Chloride (Normal Saline) 1,000 mls @ 999 mls/hr IV .BOLUS ONE Stop: 10/26/16 00:56 Last Admin: 10/26/16 00:10 Dose: 999 mls/hr Piperacillin Sod/Tazobactam (Sod 3.375 gm/ Sodium Chloride) 50 mls @ 100 mls/ hr IV Q6H [facility] Stop: 10/26/16 01:58 Last Admin: 10/26/16 02:03 Dose: 100 mls/hr Vancomycin HCl 1,000 mg/ (Dextrose/Water) 250 mls @ 167 mls/hr IV ONETIME ONE Stop: 10/26/16 02:59 Last Admin: 10/26/16 04:10 Dose: 167 mls/hr Sodium Chloride (Normal Saline) 1,000 mls @ 999 mls/hr IV .BOLUS ONE Stop: 10/26/16 03:00 Last Admin: 10/26/16 01:30 Dose: 999 mls/hr Sodium Chloride (Normal Saline) 1,000 mls @ 150 mls/hr IV ASDIRECTED [facility] Last Admin: 10/27/16 12:46 Dose: 150 mls/hr Vancomycin HCl 1 gm/ Sodium (Chloride) 250 mls @ 167 mls/hr IV Q24H [facility] Vancomycin HCl 1 gm/ Sodium (Chloride) 250 mls @ 167 mls/hr IV Q24H [facility] Piperacillin Sod/Tazobactam (Sod 3.375 gm/ Sodium Chloride) 50 mls @ 100 mls/ hr IV Q6H [facility] Last Admin: 10/26/16 15:05 Dose: 100 mls/hr Iopamidol (Isovue-370 (76%)) 75 ml IV ONETIME ONE Stop: 10/27/16 03:34 Last Admin: 10/27/16 03:58 Dose: 63 ml Sodium Chloride (Saline Flush) 10 ml FLUSH ONETIME ONE Stop: 10/26/16 04:38 Last Admin: 10/26/16 06:12 Dose: 10 ml - Exam General: alert, oriented, cooperative Lungs: Crackles (B[place]). No: Normal respiratory effort Cardiovascular: Regular Rate, Regular Rhythm, Tachycardia. No: No Murmurs Extremities: no edema - Problem List & Annotations (1) Syncopal episodes SNOMED Code(s): 864668054 Code(s): R55 - SYNCOPE AND COLLAPSE Status: Acute Current Visit: Yes (2) Hyponatremia SNOMED Code(s): 55407427 Code(s): E87.1 - HYPO-OSMOLALITY AND HYPONATREMIA Status: Acute Current Visit: Yes (3) Anemia SNOMED Code(s): 717023347 Code(s): D64.9 - ANEMIA, UNSPECIFIED Status: Acute Current Visit: Yes (4) Non-Hodgkin lymphoma SNOMED Code(s): 424342921 Code(s): C85.90 - NON-HODGKIN LYMPHOMA, UNSPECIFIED, UNSPECIFIED SITE Status: Acute Current Visit: Yes Qualifiers: Non-Hodgkin lymphoma type: B-cell (5) Pneumonia SNOMED Code(s): 432777538 Code(s): J18.9 - PNEUMONIA, UNSPECIFIED ORGANISM Status: Acute Current Visit: Yes - Problem List Review Problem List Initiated/Reviewed/Updated: Yes - My Orders Last 24 Hours: My Active Orders 10/27/16 19:55 Activity as Tolerated [RC] .Routine 10/27/16 20:40 Sodium Chloride 0.9% [Normal Saline] 1,000 ml IV ASDIRECTED - Plan Plan:: [facility]. 2. PT/OT evaluation. 3. Respiratory therapy evaluation for home O2. 4. Continue IV antibiotics. 5. Stop IV fluids and saline locked IV.
[2016-10-28] MEDS: Potassium Chloride 20 MEQ Tab.ER PO SCH ×2 (09:15→21:03)
[2016-10-28] MEDS: Famotidine 20 MG Tab PO SCH ×2 (09:16→21:03)
[2016-10-28] MEDS: Multivitamins, Therapeutic with Minerals Tab PO SCH (09:16)
[2016-10-28] MEDS: Levofloxacin/Dextrose 5%-Water 750 MG in Premix Bag 1 BAG IV SCH (17:32)
[2016-10-29] MEDS: Omeprazole 20 MG Cap.CR PO SCH (05:29)
[2016-10-29] MEDS: Enoxaparin 80 MG/0.8 ML Syringe SUBCUT SCH (06:43)
[2016-10-29] MEDS: Famotidine 20 MG Tab PO SCH (08:37)
[2016-10-29] MEDS: Potassium Chloride 20 MEQ Tab.ER PO SCH (08:37)
[2016-10-29] MEDS: Multivitamins, Therapeutic with Minerals Tab PO SCH (08:37)
[2016-10-29 08:42] VITALS: BP 129/79
--- NOTE | 2016-10-29 09:03 | PCM.PN ---
- General Info Date of Service: 10/29/16 Admission Dx/Problem (Free Text): Patient states he feels better. Denies shortness of breath, chest pain, fevers , chills, leg swelling. - Patient Data Vitals - most recent: Last Vital Signs Temp 99.0 F 10/29/16 08:30 Pulse 104 H 10/29/16 04:00 Resp 28 H 10/29/16 08:30 BP 129/79 10/29/16 08:30 Pulse Ox 86 L 10/29/16 08:30 Orthostatic Blood Pressure [ 86/59 Standing] Orthostatic Blood Pressure [ 95/64 Sitting] Orthostatic Blood Pressure [ 110/67 Supine] Weight - most recent: 170 lb 11.2 oz Med Orders - Current: Current Medications Docusate Sodium (Colace) 100 mg PO BID PRN PRN Reason: Constipation Enoxaparin Sodium (Lovenox) 70 mg SUBCUT Q12H [facility] Last Admin: 10/29/16 06:43 Dose: 70 mg Famotidine (Pepcid) 20 mg PO BID [facility] Last Admin: 10/29/16 08:37 Dose: 20 mg Heparin Sodium (Porcine) (Heparin Lock Flush 10 Units/Ml) 50 unit FLUSH ASDIRECTED PRN PRN Reason: Keep Vein Open Last Admin: 10/28/16 19:20 Dose: 50 unit Levofloxacin/Dextrose 750 mg/ (Premix) 150 mls @ 100 mls/hr IV Q24H [facility] Last Admin: 10/28/16 17:32 Dose: 100 mls/hr Loperamide HCl (Imodium) 2 mg PO Q4H PRN PRN Reason: Diarrhea Last Admin: 10/27/16 10:04 Dose: 2 mg Morphine Sulfate (Morphine 20 Mg/Ml Soln) 5 mg PO Q30M PRN PRN Reason: Pain Multivitamins/Minerals (Vitamins And Minerals) 1 tab PO DAILY [facility] Last Admin: 10/29/16 08:37 Dose: 1 tab Omeprazole (Omeprazole) 20 mg PO 0600 [facility] Last Admin: 10/29/16 05:29 Dose: 20 mg Ondansetron HCl (Zofran) 4 mg IV Q4H PRN PRN Reason: Nausea/Vomiting Potassium Chloride (Klor-Con M20) 20 meq PO BID [facility] Last Admin: 10/29/16 08:37 Dose: 20 meq Sodium Chloride ([place] Nasal [place]) 0 ml KINJAL Q2H PRN PRN Reason: Nasal Dryness Last Admin: 10/26/16 20:56 Dose: 1 spray Discontinued Medications Sodium Chloride (Normal Saline) 1,000 mls @ 999 mls/hr IV .BOLUS ONE Stop: 10/26/16 00:56 Last Admin: 10/26/16 00:10 Dose: 999 mls/hr Piperacillin Sod/Tazobactam (Sod 3.375 gm/ Sodium Chloride) 50 mls @ 100 mls/ hr IV Q6H [facility] Stop: 10/26/16 01:58 Last Admin: 10/26/16 02:03 Dose: 100 mls/hr Vancomycin HCl 1,000 mg/ (Dextrose/Water) 250 mls @ 167 mls/hr IV ONETIME ONE Stop: 10/26/16 02:59 Last Admin: 10/26/16 04:10 Dose: 167 mls/hr Sodium Chloride (Normal Saline) 1,000 mls @ 999 mls/hr IV .BOLUS ONE Stop: 10/26/16 03:00 Last Admin: 10/26/16 01:30 Dose: 999 mls/hr Sodium Chloride (Normal Saline) 250 mls @ 150 mls/hr IV ASDIRECTED [facility] Last Admin: 10/28/16 17:33 Dose: 150 mls/hr Sodium Chloride (Normal Saline) 1,000 mls @ 150 mls/hr IV ASDIRECTED [facility] Last Admin: 10/27/16 12:46 Dose: 150 mls/hr Vancomycin HCl 1 gm/ Sodium (Chloride) 250 mls @ 167 mls/hr IV Q24H [facility] Vancomycin HCl 1 gm/ Sodium (Chloride) 250 mls @ 167 mls/hr IV Q24H [facility] Piperacillin Sod/Tazobactam (Sod 3.375 gm/ Sodium Chloride) 50 mls @ 100 mls/ hr IV Q6H [facility] Last Admin: 10/26/16 15:05 Dose: 100 mls/hr Sodium Chloride (Normal Saline) 1,000 mls @ 75 mls/hr IV ASDIRECTED [facility] Last Admin: 10/27/16 20:50 Dose: 75 mls/hr Iopamidol (Isovue-370 (76%)) 75 ml IV ONETIME ONE Stop: 10/27/16 03:34 Last Admin: 10/27/16 03:58 Dose: 63 ml Sodium Chloride (Saline Flush) 10 ml FLUSH ONETIME ONE Stop: 10/26/16 04:38 Last Admin: 10/26/16 06:12 Dose: 10 ml - Exam General: alert, oriented, cooperative Lungs: Clear to auscultation, Normal respiratory effort. No: Crackles, Rales, Rhonchi, Rub Cardiovascular: Regular Rate, Regular Rhythm, Tachycardia Extremities: no edema - Problem List & Annotations (1) Syncopal episodes SNOMED Code(s): 998426468 Code(s): R55 - SYNCOPE AND COLLAPSE Status: Acute Current Visit: Yes (2) Hyponatremia SNOMED Code(s): 28486314 Code(s): E87.1 - HYPO-OSMOLALITY AND HYPONATREMIA Status: Acute Current Visit: Yes (3) Anemia SNOMED Code(s): 062727494 Code(s): D64.9 - ANEMIA, UNSPECIFIED Status: Acute Current Visit: Yes (4) Non-Hodgkin lymphoma SNOMED Code(s): 680764402 Code(s): C85.90 - NON-HODGKIN LYMPHOMA, UNSPECIFIED, UNSPECIFIED SITE Status: Acute Current Visit: Yes Qualifiers: Non-Hodgkin lymphoma type: B-cell (5) Pneumonia SNOMED Code(s): 944484827 Code(s): J18.9 - PNEUMONIA, UNSPECIFIED ORGANISM Status: Acute Current Visit: Yes (6) Pulmonary embolism SNOMED Code(s): 53991679, 47428198 Code(s): I26.99 - OTHER PULMONARY EMBOLISM WITHOUT ACUTE COR PULMONALE Status: Acute Current Visit: Yes - Problem List Review Problem List Initiated/Reviewed/Updated: Yes - My Orders Last 24 Hours: My Active Orders 10/28/16 08:35 Cardiac Monitoring [RC] .As Directed 10/28/16 08:36 Consult to Occupational Therapy [OT Evaluation and Treatment] [CONS] Routine Consult to Physical Therapy [PT Evaluation and Treatment] [CONS] Routine 10/28/16 08:37 Consult to Respiratory Therapy [Respiratory Care Assess and Treatment] [CONS] Routine Convert IV to Saline Lock [OM.PC] Routine - Plan Plan:: 1. discharge to home with home health/PT/OT. 2. Patient needs home O2 to keep sats over 90%. This is because of pneumonia and pulmonary embolism. Hopefully this would not be superintendent terminal. [id number] was done today with the patient. 3. Levaquin by mouth for his pneumonia.
--- NOTE | 2016-10-29 09:14 | PCM.DCSUM1 ---
Discharge Summary - Hospital Course Free Text/Narrative:: Hospital course-patient was put in ICU and no sepsis found. Patient had a chest x-ray with pneumonia so Levaquin was started. He had elevated respiratory rates we proceeded to a chest CT which showed pneumonia and a pulmonary embolism. Patient was started on Lovenox. Talked his oncologist Dr. Segura recommended Lovenox twice a day and no other oral medicines because of his cancer. Patients blood pressure remained normal. He was mildly tachycardic at a rate around 90 to 115. Initially he did not require oxygen but then later did require a little O2. He was in for 5 days and stabilized nicely. PT/OT was ordered and he'll go home on home health. His sodium as low as was his sodium. This is the same it has been in the past. Brief History: This is a 65-year-old male patient has non-Hodgkin's lymphoma. Came into the ER last night after he had a syncopal episode. He states he had hot sweaty when he went to the bathroom and then passed out. His brought him in and he was admitted. The last time you came home was 1 month ago. He was seen by his oncologist in [place] and did not get chemotherapy because he was not doing well. Did a CT scan that did not show infection. I reviewed Dr. Segura notes and she states he looked dehydrated 3 days ago when she saw him. No treatment was given at that time. He denies fevers, chills, ear pain, sore throat, cough, shortness of breath, abdominal pain, nausea, vomiting, diarrhea, dysuria, pyuria and hematuria. He denies any rashes. - Discharge Data Discharge Date: 10/29/16 Discharge Disposition: Home, W Home Health Agency 06 Condition: Fair - Discharge Diagnosis/Problem(s) (1) Syncopal episodes SNOMED Code(s): 630910483 ICD Code: R55 - SYNCOPE AND COLLAPSE Status: Acute Current Visit: Yes (2) Hyponatremia SNOMED Code(s): 65490386 ICD Code: E87.1 - HYPO-OSMOLALITY AND HYPONATREMIA Status: Acute Current Visit: Yes (3) Anemia SNOMED Code(s): 308020422 ICD Code: D64.9 - ANEMIA, UNSPECIFIED Status: Acute Current Visit: Yes (4) Non-Hodgkin lymphoma SNOMED Code(s): 632832857 ICD Code: C85.90 - NON-HODGKIN LYMPHOMA, UNSPECIFIED, UNSPECIFIED SITE Status: Acute Current Visit: Yes Qualifiers: Non-Hodgkin lymphoma type: B-cell (5) Pneumonia SNOMED Code(s): 543707208 ICD Code: J18.9 - PNEUMONIA, UNSPECIFIED ORGANISM Status: Acute Current Visit: Yes (6) Pulmonary embolism SNOMED Code(s): 90281166, 95797195 ICD Code: I26.99 - OTHER PULMONARY EMBOLISM WITHOUT ACUTE COR PULMONALE Status: Acute Current Visit: Yes - Patient Summary/Data Consults: Consultations 10/28/16 08:36 Consult to Occupational Therapy [OT Evaluation and Treatment] [CONS] Routine Please Evaluate and Treat. OT Reason for Consult: Strengthening This query below is only for informational purposes and is not editable. Admission Diagnosis/Problem: Pulmonary embolism Consult to Physical Therapy [PT Evaluation and Treatment] [CONS] Routine Please Evaluate and Treat. PT Reason for Consult: Strengthening This query below is only for informational purposes and is not editable. Admission Diagnosis/Problem: Pulmonary embolism 10/28/16 08:37 Consult to Respiratory Therapy [Respiratory Care Assess and Treatment] [CONS] Routine Comment: Physician Instructions: Reason for Consult: Evaluate for home O2. - Patient Instructions Diet: Regular Diet as Tolerated Activity: As Tolerated Driving: Do Not Drive Showering/Bathing: May Shower Notify Provider of: Fever, Increased Pain Other/Special Instructions: 1. Home O2 nasal cannula to keep his O2 sats greater than 90%. [id number] time today. He needs it for his pulmonary embolism and pneumonia. 2. Recheck with Dr. Schaffer or Dr. García in 7-10 days. 3. Recheck with Dr. Segura the oncologist within the week. 4. Home health/PT/OT for medication education, strengthening, ADLs, med management, to watch disease process. - Discharge Plan Prescriptions/Med Rec: Enoxaparin [Lovenox] 80 mg SUBCUT Q12H #60 syringe Levofloxacin [Levaquin] 500 mg PO Q24H #7 tablet Home Medications: Home Meds Omeprazole 20 mg PO DAILY 08/08/16 [History] Famotidine [Pepcid] 20 mg PO BID #1 bottle 08/17/16 [Rx] Morphine [Morphine 20 MG/ML Soln] 5 mg PO Q30M PRN #1 bottle 08/17/16 [Rx] Multivit-Min/FA/Vit K/Lycopene [One-A-Day Men's 50 Plus Tablet] 1 tab PO DAILY 10/26/16 [History] Potassium Chloride 20 meq PO BID 10/26/16 [History] Enoxaparin [Lovenox] 80 mg SUBCUT Q12H #60 syringe 10/29/16 [Rx] Levofloxacin [Levaquin] 500 mg PO Q24H #7 tablet 10/29/16 [Rx] Patient Handouts: Incentive Spirometer, Pulmonary Embolism, How and Where to Give Subcutaneous Enoxaparin Injections, Venous Thromboembolism Prevention Forms: ED Department Discharge Referrals: Gabriel Sepulveda MD [Primary Care Provider] - - Patient Data Vitals - Most Recent: Last Vital Signs Temp 99.0 F 10/29/16 08:30 Pulse 104 H 10/29/16 04:00 Resp 28 H 10/29/16 08:30 BP 129/79 10/29/16 08:30 Pulse Ox 86 L 10/29/16 08:30 Orthostatic Blood Pressure [ 86/59 Standing] Orthostatic Blood Pressure [ 95/64 Sitting] Orthostatic Blood Pressure [ 110/67 Supine] Weight - Most Recent: 170 lb 11.2 oz Med Orders - Current: Current Medications Docusate Sodium (Colace) 100 mg PO BID PRN PRN Reason: Constipation Enoxaparin Sodium (Lovenox) 70 mg SUBCUT Q12H [facility] Last Admin: 10/29/16 06:43 Dose: 70 mg Famotidine (Pepcid) 20 mg PO BID [facility] Last Admin: 10/29/16 08:37 Dose: 20 mg Heparin Sodium (Porcine) (Heparin Lock Flush 10 Units/Ml) 50 unit FLUSH ASDIRECTED PRN PRN Reason: Keep Vein Open Last Admin: 10/28/16 19:20 Dose: 50 unit Levofloxacin/Dextrose 750 mg/ (Premix) 150 mls @ 100 mls/hr IV Q24H [facility] Last Admin: 10/28/16 17:32 Dose: 100 mls/hr Loperamide HCl (Imodium) 2 mg PO Q4H PRN PRN Reason: Diarrhea Last Admin: 10/27/16 10:04 Dose: 2 mg Morphine Sulfate (Morphine 20 Mg/Ml Soln) 5 mg PO Q30M PRN PRN Reason: Pain Multivitamins/Minerals (Vitamins And Minerals) 1 tab PO DAILY [facility] Last Admin: 10/29/16 08:37 Dose: 1 tab Omeprazole (Omeprazole) 20 mg PO 0600 [facility] Last Admin: 10/29/16 05:29 Dose: 20 mg Ondansetron HCl (Zofran) 4 mg IV Q4H PRN PRN Reason: Nausea/Vomiting Potassium Chloride (Klor-Con M20) 20 meq PO BID [facility] Last Admin: 10/29/16 08:37 Dose: 20 meq Sodium Chloride (Lamar Nasal [place]) 0 ml KINJAL Q2H PRN PRN Reason: Nasal Dryness Last Admin: 10/26/16 20:56 Dose: 1 spray Discontinued Medications Sodium Chloride (Normal Saline) 1,000 mls @ 999 mls/hr IV .BOLUS ONE Stop: 10/26/16 00:56 Last Admin: 10/26/16 00:10 Dose: 999 mls/hr Piperacillin Sod/Tazobactam (Sod 3.375 gm/ Sodium Chloride) 50 mls @ 100 mls/ hr IV Q6H STA Stop: 10/26/16 01:58 Last Admin: 10/26/16 02:03 Dose: 100 mls/hr Vancomycin HCl 1,000 mg/ (Dextrose/Water) 250 mls @ 167 mls/hr IV ONETIME ONE Stop: 10/26/16 02:59 Last Admin: 10/26/16 04:10 Dose: 167 mls/hr Sodium Chloride (Normal Saline) 1,000 mls @ 999 mls/hr IV .BOLUS ONE Stop: 10/26/16 03:00 Last Admin: 10/26/16 01:30 Dose: 999 mls/hr Sodium Chloride (Normal Saline) 250 mls @ 150 mls/hr IV ASDIRECTED [facility] Last Admin: 10/28/16 17:33 Dose: 150 mls/hr Sodium Chloride (Normal Saline) 1,000 mls @ 150 mls/hr IV ASDIRECTED [facility] Last Admin: 10/27/16 12:46 Dose: 150 mls/hr Vancomycin HCl 1 gm/ Sodium (Chloride) 250 mls @ 167 mls/hr IV Q24H [facility] Vancomycin HCl 1 gm/ Sodium (Chloride) 250 mls @ 167 mls/hr IV Q24H [facility] Piperacillin Sod/Tazobactam (Sod 3.375 gm/ Sodium Chloride) 50 mls @ 100 mls/ hr IV Q6H [facility] Last Admin: 10/26/16 15:05 Dose: 100 mls/hr Sodium Chloride (Normal Saline) 1,000 mls @ 75 mls/hr IV ASDIRECTED [facility]DA Last Admin: 10/27/16 20:50 Dose: 75 mls/hr Iopamidol (Isovue-370 (76%)) 75 ml IV ONETIME ONE Stop: 10/27/16 03:34 Last Admin: 10/27/16 03:58 Dose: 63 ml Sodium Chloride (Saline Flush) 10 ml FLUSH ONETIME ONE Stop: 10/26/16 04:38 Last Admin: 10/26/16 06:12 Dose: 10 ml *Q Meaningful Use (DIS) - VTE *Q VTE Criteria *Q: - Stroke *Q Stroke Criteria *Q: - AMI *Q AMI Criteria *Q:
== END 2016-10-29 13:15 | disposition home health service (06) | DRG 193 ==
LOC: FB.ED 23:45 → FB.ICU 10-26 01:45 → FB.MS 10-28 08:35
PROVIDERS: ADMIT Emergency Medicine; ATTEND Family Medicine
DX: J18.9 Pneumonia, unspecified organism (principal); I26.99 Other pulmonary embolism without acute cor pulmonale; C85.90 Non-Hodgkin lymphoma, unspecified, unspecified site; E87.1 Hypo-osmolality and hyponatremia; D64.9 Anemia, unspecified; R55 Syncope and collapse
CPT/HCPCS: 81001; 96361; 99285; J7040 ×2; 36415; 71020; 71275; 80048; 80053; 83605; 83880; 85025; 85379; 87040; 93005; 96360; 96365; 97162-GP; A9270; A9270-GY; J1642; J1650; J1956; J2543; J3370; J7050; J7060; Q9967

== ENCOUNTER 2017-05-28 22:24 | Emergency (ER) | payer MEDICARE, OTHER ==
--- NOTE | 2017-05-28 23:02 | EDM.PDOC ---
ED HPI GENERAL MEDICAL PROBLEM - General Chief Complaint: Fever Stated Complaint: FEVER Time Seen by Provider: 05/28/17 22:25 Source of Information: Reports: Patient, Family History Limitations: Reports: No Limitations - History of Present Illness INITIAL COMMENTS - FREE TEXT/NARRATIVE: 66 y.o.w.m with H/O Non Hodgkin disease Stage III, S/P Chemo Tx came to the ED because a temp of 101.0 Temp was 99.8 when he arrived here in the ed. Dr. Segura, Oncologist, advised the pt to come to the ed for further evaluation and wants to be called back. Pt denies any acute medical issues. BP 140/76 pulse 103 Temp 37.7 Pulse ox 98% on RA Onset: Today Onset Date: 05/28/17 Onset Time: 21:00 Duration: Hour(s):, Intermittent Location: Reports: Generalized Quality: Reports: Other (fever) Severity: Mild Improves with: Reports: Medication Worsens with: Reports: Rest Context: Reports: Other (H/o Nonhodgkin's disease Stage #) Associated Symptoms: Reports: No Other Symptoms - Related Data Allergies Allergy/AdvReac Type Severity Reaction Status Date / Time No Known Allergies Allergy Verified 05/28/17 22:38 Home Meds: Home Meds Multivit-Min/FA/Vit K/Lycopene [One-A-Day Men's 50 Plus Tablet] 1 tab PO DAILY 10/26/16 [History] Enoxaparin [Lovenox] 120 mg SUBCUT BEDTIME 05/28/17 [History] Past Medical History - Past Health History Medical/Surgical History: Denies Medical/Surgical History Gastrointestinal History: Reports: Other (See Below) Other Gastrointestinal History: liver bx Oncologic (Cancer) History: Reports: Non-Hodgkin's Lymphoma, Other (See Below) Other Oncologic History: Stage 3 - Infectious Disease History Infectious Disease History: Reports: Measles, Mumps - Past Surgical History GI Surgical History: Reports: Other (See Below) Other GI Surgeries/Procedures: Stent in liver Social & Family History - Family History Family Medical History: Noncontributory - Tobacco Use Smoking Status *Q: Never Smoker Second Hand Smoke Exposure: No - Caffeine Use Caffeine Use: Reports: None - Recreational Drug Use Recreational Drug Use: No ED ROS GENERAL - Review of Systems Review Of Systems: See Below Constitutional: Reports: No Symptoms, Fever (supsided PT) HEENT: Reports: No Symptoms Respiratory: Reports: No Symptoms Cardiovascular: Reports: No Symptoms Endocrine: Reports: No Symptoms GI/Abdominal: Reports: No Symptoms : Reports: No Symptoms Musculoskeletal: Reports: No Symptoms Skin: Reports: No Symptoms Neurological: Reports: No Symptoms Psychiatric: Reports: No Symptoms Hematologic/Lymphatic: Reports: No Symptoms Immunologic: Reports: No Symptoms ED EXAM, SEPSIS - Physical Exam Exam: See Below Exam Limited By: No Limitations General Appearance: Alert, WD/WN, No Apparent Distress Eye Exam: Bilateral Eye: Normal Inspection Ears: Normal External Exam Nose: Normal Inspection Throat/Mouth: Normal Inspection Head: Atraumatic, Normocephalic Neck: Normal Inspection Respiratory/Chest: No Respiratory Distress, Lungs Clear, Normal Breath Sounds Cardiovascular: Normal Peripheral Pulses, Regular Rate, Rhythm, No Edema, No Gallop Peripheral Pulses: 0: Radial (L) GI/Abdominal Exam: Normal Bowel Sounds, Soft, Non-Tender (Male) Exam: Deferred Rectal (Males) Exam: Deferred Back: Normal Inspection, Full Range of Motion Extremities: Normal Inspection, Normal Range of Motion Neurological: Alert, Oriented, CN II-XII Intact, Normal Cognition, Normal Gait Psychiatric: Normal Affect, Normal Mood Skin: Warm, Dry, Intact, Normal Color, No Rash Course - Vital Signs Text/Narrative:: 66 y.o.w.m with H/O Non Hodgkin disease Stage III, S/P Chemo Tx came to the ED because a temp of 101.0 Temp was 99.8 when he arrived here in the ed. Dr. Segura, Oncologist, advised the pt to come to the ed for further evaluation and wants to be called back. Pt denies any acute medical issues. BP 140/76 pulse 103 Temp 37.7 Pulse ox 98% on RA PE: WNWD NAD Temp 37.7 labs: WBC 9,0 Bans t Neutros nl. UA neg Lactic acid 1.7 Impression: Non Hodgkin Lymphome Stage III Typ? 11.59 pm Consultation: Dr. MENG, Oncologist, [place]: D/C to home Reexam: Temp was 98.9 on D/C Plan: D/C with instructions Last Recorded V/S: Last Vital Signs Temp 37.7 C 05/29/17 00:40 Pulse 97 05/29/17 00:40 Resp 18 05/29/17 00:40 BP 118/63 05/29/17 00:40 Pulse Ox 95 05/29/17 00:40 - Orders/Labs/Meds Labs: Laboratory Tests 05/28/17 05/28/17 05/28/17 Range/Units 23:00 23:00 23:00 WBC 9.0 (4.5-12.0) X10-3/uL RBC 3.41 L (4.30-5.75) x10(6)uL Hgb 10.3 L (11.5-15.5) g/dL Hct 30.7 (30.0-51.3) % MCV 90.0 (80-96) fL MCH 30.2 (27.7-33.6) pg MCHC 33.6 (32.2-35.4) g/dL RDW 17.1 H (11.5-15.5) % Plt Count 430 H (125-369) X10(3)uL MPV 7.2 L (7.4-10.4) fL Add Manual Diff Yes Neutrophils % (Manual) 79 (46-82) % Band Neutrophils % 7 H (0-6) % Lymphocytes % (Manual) 10 L (13-37) % Monocytes % (Manual) 4 (4-12) % Sodium 137 (135-145) mmol/L Potassium 4.1 (3.5-5.3) mmol/L Chloride 101 (100-110) mmol/L Carbon Dioxide 26 (21-32) mmol/L BUN 26 H (7-18) mg/dL Creatinine 1.1 (0.70-1.30) mg/dL Est Cr Clr Drug Dosing TNP Estimated GFR (MDRD) > 60 (>60) BUN/Creatinine Ratio 23.6 H (9-20) Glucose 136 H (80-116) mg/dL Lactic Acid 1.7 (0.4-2.2) mmol/L Calcium 8.6 (8.6-10.2) mg/dL Urine Color (YELLOW) Urine Appearance (CLEAR) Urine pH (5.0-6.5) Ur Specific [place] (1.010-1.025) Urine Protein (NEGATIVE) mg/dL Urine Glucose (UA) (NEGATIVE) mg/dL Urine Ketones (NEGATIVE) mg/dL Urine Occult Blood (NEGATIVE) Urine Nitrite (NEGATIVE) Urine Bilirubin (NEGATIVE) Urine Urobilinogen (NEGATIVE) mg/dL Ur Leukocyte Esterase (NEGATIVE) Urine RBC (0) Urine WBC (0) Ur Squamous Epith Cells (NS,R,O) Urine Bacteria (NS) 05/28/17 Range/Units 23:04 WBC (4.5-12.0) X10-3/uL RBC (4.30-5.75) x10(6)uL Hgb (11.5-15.5) g/dL Hct (30.0-51.3) % MCV (80-96) fL MCH (27.7-33.6) pg MCHC (32.2-35.4) g/dL RDW (11.5-15.5) % Plt Count (125-369) X10(3)uL MPV (7.4-10.4) fL Add Manual Diff Neutrophils % (Manual) (46-82) % Band Neutrophils % (0-6) % Lymphocytes % (Manual) (13-37) % Monocytes % (Manual) (4-12) % Sodium (135-145) mmol/L Potassium (3.5-5.3) mmol/L Chloride (100-110) mmol/L Carbon Dioxide (21-32) mmol/L BUN (7-18) mg/dL Creatinine (0.70-1.30) mg/dL Est Cr Clr Drug Dosing Estimated GFR (MDRD) (>60) BUN/Creatinine Ratio (9-20) Glucose (80-116) mg/dL Lactic Acid (0.4-2.2) mmol/L Calcium (8.6-10.2) mg/dL Urine Color Yellow (YELLOW) Urine Appearance Clear (CLEAR) Urine pH 5.0 (5.0-6.5) Ur Specific [place] 1.020 (1.010-1.025) Urine Protein Negative (NEGATIVE) mg/dL Urine Glucose (UA) Normal (NEGATIVE) mg/dL Urine Ketones Negative (NEGATIVE) mg/dL Urine Occult Blood Negative (NEGATIVE) Urine Nitrite Negative (NEGATIVE) Urine Bilirubin Negative (NEGATIVE) Urine Urobilinogen Normal (NEGATIVE) mg/dL Ur Leukocyte Esterase Negative (NEGATIVE) Urine RBC 0-5 (0) Urine WBC 0-5 (0) Ur Squamous Epith Cells Rare (NS,R,O) Urine Bacteria Few H (NS) Departure - Departure Time of Disposition: 00:19 Disposition: Home, Self-Care 01 Condition: Good Clinical Impression: Non-Hodgkin lymphoma Qualifiers: Follicular lymphoma grade: grade III, unspecified - Discharge Information Instructions: Fever, Adult Referrals: Damian Schaffer MD [Primary Care Provider] - Forms: ED Department Discharge Additional Instructions: Please continue your current meds, please f/u, come back if your symptoms get worse acutely
[2017-05-29 00:41] VITALS: BP 118/63
== END 2017-05-29 00:40 | disposition home or self-care (01) ==
LOC: FB.ED 22:24
DX: C82.20 Follicular lymphoma grade III, unspecified, unspecified site (principal)
CPT/HCPCS: 36415; 80048; 81001; 83605; 85025; 99283; 99284